=== PATIENT | female | born 1950 | race American Indian/Alaskan Native ===

== ENCOUNTER 2018-02-06 15:44 | Emergency (ER) | payer MEDICARE ==
[2018-02-06 16:03] VITALS: BP 174/56
[2018-02-06 16:20] LABS: Basophils # (Auto) 0.1 K/mm3 (0.0-0.1); Eosinophils # (Auto) 0.1 K/mm3 (0.0-0.4); Eosinophils % (Auto) 1.5 % (0.0-4.3); Hematocrit 38.1 % (30.3-42.9); Lymphocytes # (Auto) 2.1 K/mm3 (1.2-5.4); Mean Corpuscular HGB Conc 34 % (30-34); Mean Corpuscular Hemoglobin 35 pg (28-32); Mean Corpuscular Volume 102 fl (79-97); Monocytes # (Auto) 0.4 K/mm3 (0.0-0.8); Monocytes % (Auto) 6.6 % (0.0-7.3); Platelet Count 253 K/mm3 (140-440); Red Blood Count 3.74 M/mm3 (3.65-5.03); Red Cell Distribution Width 13.3 % (13.2-15.2)
[2018-02-06 16:38] LABS: Alanine Aminotransferase 16 units/L (7-56); Albumin 4.4 g/dL (3.9-5); BUN/Creatinine Ratio 20; Blood Urea Nitrogen 14 mg/dL (7-17); Calcium 9.7 mg/dL (8.4-10.2); Creatine Kinase MB 2.4 ng/mL (0.0-4.0); Hemolysis Index 15
== END 2018-02-06 17:48 | disposition left against medical advice (07) ==
LOC: ED 15:44
DX: R07.9 Chest pain, unspecified (principal); Z53.21 Procedure and treatment not carried out due to patient leaving prior to being seen by health care provider
CPT/HCPCS: 36415; 80053; 82550; 82553; 84484; 85025; 93005; 93010

== ENCOUNTER 2021-07-05 23:35 | Observation (INO) | payer OTHER, MEDICARE ==
[2021-07-05] MEDS ORDERED: SODIUM CHLORIDE 0.9% 1000 ML 1,000 ML IV ONE (23:42)
[2021-07-05] MEDS ORDERED: ONDANSETRON 4 MG/2 ML INJ IV ONE (23:42)
--- NOTE | 2021-07-05 23:47 | Emergency Department Report ---
ED Dizziness HPI - General Chief Complaint: Dizziness Stated Complaint: DIZZINESS Time Seen by Provider: 07/05/21 23:40 Source: patient, EMS Mode of arrival: Stretcher Limitations: No Limitations - History of Present Illness Initial Comments: Patient is a 71-year-old female who presents emergency room with complaints of dizziness, lightheadedness and nausea. Patient states it started approximately 3 hours ago. Patient states the symptoms are worsening. Patient states she has not vomited until she arrived here at the hospital. Patient vomited while waiting on EMS stretcher to be placed in a room. Patient denies diarrhea. Patient denies fever and chills. Patient denies fall. Patient denies head injury. Patient denies chest pain or shortness of breath. Patient denies recent travel. Patient denies recent international travel. Patient denies exposure to the novel coronavirus. Patient denies sick contacts. Patient denies fever and chills. Patient denies cough. Patient denies diarrhea. Patient denies coming in contact with anybody with symptoms of the novel coronavirus. Complaint: dizziness, lightheadedness -: Sudden, hour(s) Timing: sudden onset Description: lightheadedness History of Same: No History of Trauma: No Severity: severe Improves With: rest Worsens With: movement, position, exertion Associated Symptoms: denies: ataxia, chest pain, confusion, cough, diaphoresis, fever/chills, loss of appetite, malaise, rash, seizure, shortness of breath, syncope, weakness - Related Data Allergies Allergy/AdvReac Type Severity Reaction Status Date / Time No Known Allergies Allergy Unverified 02/06/18 16:02 ED Review of Systems ROS: Stated complaint: DIZZINESS Other details as noted in HPI Constitutional: denies: chills, fever Eyes: denies: eye pain, eye discharge, vision change ENT: denies: ear pain, throat pain Respiratory: denies: cough, shortness of breath, wheezing Cardiovascular: denies: chest pain, palpitations Endocrine: no symptoms reported Gastrointestinal: denies: abdominal pain, nausea, diarrhea Genitourinary: denies: urgency, dysuria, discharge Musculoskeletal: denies: back pain, joint swelling, arthralgia Skin: denies: rash, lesions Neurological: denies: headache, weakness, paresthesias Psychiatric: denies: anxiety, depression Hematological/Lymphatic: denies: easy bleeding, easy bruising ED Past Medical Hx - Past Medical History Previous Medical History?: Yes Hx Hypertension: Yes Hx Psychiatric Treatment: Yes (anxiety) - Surgical History Past Surgical History?: No - Family History Family history: no significant - Social History Smoking Status: Never Smoker Substance Use Type: None ED Physical Exam - General Limitations: No Limitations General appearance: alert, in no apparent distress - Head Head exam: Present: atraumatic, normocephalic - Eye Eye exam: Present: normal appearance - ENT ENT exam: Present: mucous membranes moist - Neck Neck exam: Present: normal inspection - Respiratory Respiratory exam: Present: normal lung sounds bilaterally. Absent: respiratory distress, wheezes, rales - Cardiovascular Cardiovascular Exam: Present: regular rate, normal rhythm. Absent: systolic murmur, diastolic murmur, rubs, gallop - GI/Abdominal GI/Abdominal exam: Present: soft, normal bowel sounds. Absent: distended, tenderness, guarding - Extremities Exam Extremities exam: Present: normal inspection - Back Exam Back exam: Present: normal inspection - Neurological Exam Neurological exam: Present: alert, oriented X3, CN II-XII intact, abnormal gait - Psychiatric Psychiatric exam: Present: normal affect, normal mood - Skin Skin exam: Present: warm, dry, intact, normal color. Absent: rash ED Course Vital Signs 07/06/21 07/06/21 07/06/21 00:24 00:30 00:46 Pulse Rate 57 L 58 L Respiratory 16 18 18 Rate Blood Pressure 151/57 O2 Sat by Pulse 100 98 Oximetry - Reevaluation(s) Reevaluation #1: Patient states she still nauseated. Patient unable to tolerate p.o. intake. Patient will be given another dose of Zofran. 07/06/21 02:00 Reevaluation #2: I discussed all results with patient. I discussed plan of care with patient. Patient agrees with plan of care and admission. Patient to be admitted to the hospitalist service. 07/06/21 02:13 - Consultations Consultation #1: I discussed the case with [facility] physician, Dr. Cai. Dr. Cai wants the patient to be admitted here. 07/06/21 02:10 Consultation #2: Hospitalist consulted for admission. Hospitalist to admit patient. 07/06/21 02:13 ED Medical Decision Making - Lab Data Result diagrams: 07/06/21 00:53 07/06/21 00:53 - EKG Data -: EKG Interpreted by Me EKG shows normal: sinus rhythm, axis, intervals, QRS complexes, ST-T waves Rate: normal - Radiology Data Radiology results: report reviewed, image reviewed interpreted by me: Chest x-ray: No pneumonia, no pneumothorax, no foreign body, no osseous findings, no acute findings CT HEAD WITHOUT CONTRAST INDICATION / CLINICAL INFORMATION: Pt complains of Lightheadedness / Dizziness. TECHNIQUE: All CT scans at this location are performed using CT dose reduction for ALARA by means of automated exposure control. COMPARISON: None available. FINDINGS: No acute intracranial hemorrhage. Ventricles are normal in size without midline shift or mass effect. No extra-axial fluid collection is seen. The sinuses are clear. Orbits appear normal. ADDITIONAL FINDINGS: None. IMPRESSION: 1. No acute intracranial abnormality. CHEST 1 VIEW 07/06/2021 12:43 AM INDICATION / CLINICAL INFORMATION: Lightheadedness/Dizziness. COMPARISON: None available. FINDINGS: SUPPORT DEVICES: None. HEART / MEDIASTINUM: No significant abnormality. LUNGS / PLEURA: There is mild increased interstitial prominence within the lungs. No pneumothorax - Medical Decision Making Patient is a 71-year-old female that presents emergency room with complaints of nausea, vomiting, dizziness, lightheadedness. Patient also complained of difficulty walking. Patient had labs done which were essentially unremarkable. Patient had chest x-ray done which was negative for acute findings. Patient had a head CT which was negative for acute findings. I personally reviewed the chest x-ray. Patient had an EKG done which showed normal sinus rhythm. I personally reviewed the EKG. Patient given fluids and antiemetics. Patient continued to have nausea vomiting. Patient failed p.o. challenge. Patient has [facility] insurance, I discussed the case with the [facility] on-call physician. [facility] physician wants patient admitted here. Patient admitted to the hospital service for further evaluation and treatment. Critical care time documented due to the multiple reassessments, prolonged time at the bedside, interpretation of diagnostics and labs. - Differential Diagnosis Dizziness, dehydration, nausea, vomiting, gastroenteritis, Critical Care Time: Yes Critical care time in (mins) excluding proc time.: 35 Critical care attestation.: If time is entered above; I have spent that time in minutes in the direct care of this critically ill patient, excluding procedure time. Critical Care Time: 35 minutes ED Disposition Clinical Impression: Dizziness, Lightheadedness, Gastroenteritis Nausea & vomiting Qualifiers: Vomiting type: unspecified Vomiting Intractability: intractable Qualified Code(s): R11.2 - Nausea with vomiting, unspecified Disposition: ADMITTED INPATIENT Is pt being admited?: Yes Does the pt Need Aspirin: No Condition: Critical Time of Disposition: 02:16
--- NOTE | 2021-07-06 00:59 | Cat Scan Report ---
CT HEAD WITHOUT CONTRAST INDICATION / CLINICAL INFORMATION: Pt complains of Lightheadedness / Dizziness. TECHNIQUE: All CT scans at this location are performed using CT dose reduction for ALARA by means of automated e xposure control. COMPARISON: None available. FINDINGS: No acute intracranial hemorrhage. Ventricles are normal in size without midline shift or mass effect. No extra-axial fluid collection is seen. The sinuses are clear. Orbits appear normal. ADDITIONAL FINDINGS: None. IMPRESSION: 1. No acute intracranial abnormality. Signer Name: Miles Mcknight MD Signed: 07/06/2021 12:55 AM Workstation Name: [id number]
[2021-07-06 01:12] LABS: Basophils % (Auto) 0.3 % (0.0-1.8); Eosinophils % (Auto) 0.4 % (0.0-4.3); Hematocrit 34.6 % (30.3-42.9); Hemoglobin 11.7 gm/dl (10.1-14.3); Lymphocytes # (Auto) 1.9 K/mm3 (1.2-5.4); Lymphocytes % (Auto) 17.5 % (13.4-35.0); Mean Corpuscular HGB Conc 34 % (30-34); Mean Corpuscular Volume 105 fl (79-97); Monocytes # (Auto) 0.4 K/mm3 (0.0-0.8); Platelet Count 210 K/mm3 (140-440); Red Blood Count 3.29 M/mm3 (3.65-5.03); Red Cell Distribution Width 13.2 % (13.2-15.2)
[2021-07-06 01:35] LABS: Alanine Aminotransferase 18 units/L (7-56); Albumin 4.1 g/dL (3.9-5); BUN/Creatinine Ratio 15; Blood Urea Nitrogen 12 mg/dL (7-17); Calcium 8.5 mg/dL (8.4-10.2); Hemolysis Index 3
[2021-07-06 01:37] LABS: Creatine Kinase MB 1.9 ng/mL (0.0-4.0)
--- NOTE | 2021-07-06 01:52 | XRay Report ---
CHEST 1 VIEW 07/06/2021 12:43 AM INDICATION / CLINICAL INFORMATION: Lightheadedness/Dizziness. COMPARISON: None available. FINDINGS: SUPPORT DEVICES: None. HEART / MEDIASTINUM: No significant abnormality. LUNGS / PLEURA: There is mild increased interstitial prominence within the lungs. No pneumothorax Signer Name: Miles Mcknight MD Signed: 07/06/2021 1:47 AM Workstation Name: [id number]
[2021-07-06] MEDS ORDERED: ONDANSETRON 4 MG/2 ML INJ IV ONE (01:59)
--- NOTE | 2021-07-06 02:36 | History and Physical Report ---
History of Present Illness Date of examination: 07/06/21 Date of admission: 07/06/21 Chief complaint: Nausea and vomiting Abdominal Pain History of present illness: This is a 71 year old Patient-seen in ED at bedside. patint is alert and oriented times 3. She reports severe abdominal pain-pain level is 9/10. She said her symptoms started yesterday after eating phil green with chicken prepared by her . She also presents to emergency room with complaints of dizziness, lightheadedness and nausea. Patient states the symptoms are worsening. Patient states she has not vomited until she arrived here at the hospital. Per ED record, Patient vomited while waiting on EMS stretcher to be placed in a room. Patient denies fever and chills. Patient denies tobacco use, alcohol use and illicit drug use. Patient denies chest pain and shortness of breath. She said she completed 2 doses of covid 19 vaccination. Chest x-ray and CT of the head done-no acute finding. Past History Past Medical History: hypertension, hyperlipidemia Past Surgical History: Other (laminectomy) Social history: , lives with family, full code. denies: smoking, alcohol abuse, prescription drug abuse, IV drug use Family history: no significant family history Medications and Allergies Allergies Allergy/AdvReac Type Severity Reaction Status Date / Time No Known Allergies Allergy Verified 07/06/21 02:54 Review of Systems Constitutional: anorexia, fatigue Ears, nose, mouth and throat: no epistaxis, no bleeding gums Cardiovascular: lightheadedness, high blood pressure, no chest pain, no leg edema Gastrointestinal: abdominal pain, nausea, vomiting, diarrhea Genitourinary Female: no dyspareunia, no pelvic pain Rectal: no hemorrhoids Integumentary: no rash, no pruritis, no redness Psychiatric: no anxiety Hematologic/Lymphatic: no easy bruising, no easy bleeding Allergic/Immunologic: no urticaria Exam - Constitutional Vitals: Temp Pulse Resp BP Pulse Ox 58 L 18 151/57 98 07/06/21 00:30 07/06/21 00:46 07/06/21 00:30 07/06/21 00:46 General appearance: Present: mild distress, well-nourished - EENT Eyes: Present: PERRL ENT: hearing intact, clear oral mucosa - Neck Neck: Present: supple, normal ROM - Respiratory Respiratory effort: normal Respiratory: bilateral: CTA - Cardiovascular Heart Sounds: Present: S1 & S2. Absent: rub, click - Extremities Extremities: pulses symmetrical, No edema Peripheral Pulses: within normal limits - Abdominal General gastrointestinal: Present: soft, tender, non-distended, normal bowel sounds Female genitourinary: Present: normal - Integumentary Integumentary: Present: clear, warm, dry - Musculoskeletal Musculoskeletal: gait normal, strength equal bilaterally - Psychiatric Psychiatric: appropriate mood/affect, intact judgment & insight, cooperative - Neurologic Neurologic: CNII-XII intact, moves all extremities - Allied Health Allied health notes reviewed: nursing HEART Score - HEART Score Troponin: Troponin T < 0.010 ng/mL (0.00-0.029) 07/06/21 00:53 Results - Labs CBC & Chem 7: 07/06/21 00:53 07/06/21 00:53 Labs: Abnormal lab results 07/06/21 07/06/21 Range/Units 00:53 00:53 RBC 3.29 L (3.65-5.03) M/mm3 MCV 105 H (79-97) fl MCH 36 H (28-32) pg Seg Neutrophils % 77.8 H (40.0-70.0) % Seg Neutrophils # 8.4 H (1.8-7.7) K/mm3 Sodium 136 L (137-145) mmol/L Glucose 237 H (65-100) mg/dL Assessment and Plan - Patient Problems (1) Gastroenteritis Current Visit: Yes Status: Acute Plan to address problem: Empiric abx with zosyn pt reports that her symptoms started after eating phil green with chicken yesterday NPO and IV hydration CT of abdomen/pelvis-result pending (2) Nausea & vomiting Current Visit: Yes Status: Acute Qualifiers: Vomiting type: unspecified Vomiting Intractability: intractable Qualified Code(s): R11.2 - Nausea with vomiting, unspecified Plan to address problem: Anti-emetic PRN (3) Essential (primary) hypertension Current Visit: Yes Status: Acute Plan to address problem: monitor blood pressure Resume home anti-hypertensive Chest x-ray -no acute finding (4) Hyperlipemia Current Visit: Yes Status: Acute Plan to address problem: resume home stratin (5) Lightheadedness Current Visit: Yes Status: Acute Plan to address problem: CT of the head -negative (6) DVT prophylaxis Current Visit: Yes Status: Acute Plan to address problem: clarisse couch
[2021-07-06] MEDS ORDERED: METOCLOPRAMIDE 10 MG/2 ML INJ IV PRN (02:39)
[2021-07-06] MEDS ORDERED: oxyCODONE /ACETAMINOPHEN 5-325MG TAB PO PRN (02:39)
[2021-07-06] MEDS ORDERED: ACETAMINOPHEN 325 MG TAB PO PRN (02:39)
[2021-07-06] MEDS ORDERED: MORPHINE 2 MG/1 ML INJ IV PRN (02:39)
[2021-07-06] MEDS ORDERED: MORPHINE 4 MG/1 ML INJ IV PRN (02:39)
[2021-07-06] MEDS ORDERED: MAGNESIUM HYDROXIDE (MOM) ORAL LIQD UDC PO PRN (02:39)
[2021-07-06] MEDS ORDERED: ONDANSETRON 4 MG/2 ML INJ IV PRN (02:39)
[2021-07-06] MEDS ORDERED: NALOXONE 0.4 MG/1 ML INJ IV PRN (02:39)
[2021-07-06] MEDS ORDERED: ALUM-MAG HYDROXIDE-SIMETHICONE 200-200-20MG/5ML ORAL LIQD 30 ML PO PRN (02:39)
[2021-07-06] MEDS ORDERED: traZODone 50 MG TAB PO PRN (02:43)
[2021-07-06] MEDS ORDERED: hydrALAZINE 20 MG/1 ML INJ IV PRN (02:44)
[2021-07-06] MEDS ORDERED: SODIUM CHLORIDE 0.9% 1000 ML 1,000 ML IV SCH (02:45)
[2021-07-06] MEDS: PIPERACIL/TAZOBACTA 4.5/NS 100 4.5 GM/100 ML VIAL IV SCH ×2 (04:03→11:49)
[2021-07-06] MEDS: FAMOTIDINE 20 MG/2 ML INJ IV SCH ×3 (04:03→21:15)
[2021-07-06] MEDS: INSULIN LISPRO 100 UNIT/ML SUB-Q SCH ×4 (08:56→21:23)
--- NOTE | 2021-07-06 11:00 | Cat Scan Report ---
CT ABDOMEN AND PELVIS WITHOUT CONTRAST INDICATION / CLINICAL INFORMATION: ABDOMINAL PAIN. TECHNIQUE: Axial CT images were obtained through the abdomen and pelvis without IV contrast. All CT scans at this location are performed using CT dose reduction for ALARA by means of automated exposure control. COMPARISON: None available. FINDINGS: LOWER CHEST: No acute abnormality LIVER: No significant abnormality. GALLBLADDER: No significant abnormality. BILE DUCTS: No significant abnormality. PANCREAS: No significant abnormality. SPLEEN: No significant abnormality. ADRENALS: No significant abnormality. RIGHT KIDNEY / URETER: There is a 1 cm cyst in the lower pole. No acute abnormality is seen. No renal or ureteral calculi are seen. LEFT KIDNEY / URETER: No significant abnormality. STOMACH / SMALL BOWEL: No significant abnormality. COLON: No significant abnormality. APPENDIX: There is a small appendicolith in the appendix. The appendix measures up to 8 mm in diamete r. There are some minimal stranding in the periappendiceal fat. There is some air within the appendix . PERITONEUM: No free fluid. No free air. No fluid collection. LYMPH NODES: No significant adenopathy. AORTA / ARTERIES: No significant abnormality. IVC / VEINS: No significant abnormality. URINARY BLADDER: No significant abnormality. REPRODUCTIVE ORGANS: No significant abnormality. ADDITIONAL FINDINGS: None. SKELETAL SYSTEM: No significant abnormality. IMPRESSION: 1. The appendix is slightly enlarged and there is some minimal stranding in the periappendiceal fat. There is a tiny appendicolith. The appearance is suspicious for mild appendicitis but the abnormaliti es are subtle and therefore not definitive.. Signer Name: Juan Argueta MD Signed: 07/06/2021 10:56 AM Workstation Name: [email or web address]
[2021-07-06] MEDS: amLODIPine 10 MG TAB PO SCH (11:48)
[2021-07-06] MEDS: ENOXAPARIN 40 MG/0.4 ML INJ SUB-Q SCH (11:49)
--- NOTE | 2021-07-06 12:30 | Progress Note ---
Assessment and Plan Assessment and plan: #Abdominal pain -WBC within normal limits, afebrile -CT abdomen/pelvis showed an enlarged appendix with mild stranding -Surgery consulted, assistance appreciated -We will treat with Levaquin x7 days #Nausea and vomiting -Resolved, as needed Zofran History Interval history: No acute events overnight. Patient still reporting lightheadedness upon standing. Denies current abdominal pain, nausea, vomiting. Hospitalist Physical - Physical exam Narrative exam: GENERAL: Well-developed well-nourished. Lying in the bed no acute distress CHEST/LUNGS: CTAB on room air HEART/CARDIOVASCULAR: RRR. No murmur, rubs or gallops appreciated. ABDOMEN: +BS. NT/ND. NEURO: No focal motor deficit. Follows all commands. EXTREMITIES: No cyanosis, cubbing or edema. PSYCH: Cooperative. - Constitutional Vitals: Temp Pulse Resp BP Pulse Ox 98.6 F 63 18 153/68 100 07/06/21 11:25 07/06/21 11:57 07/06/21 11:25 07/06/21 11:25 07/06/21 11:25 General appearance: Present: mild distress, well-nourished - Allied Health Allied health notes reviewed: nursing, social work HEART Score - HEART Score Troponin: Troponin T < 0.010 ng/mL (0.00-0.029) 07/06/21 00:53 Results - Labs CBC & Chem 7: 07/06/21 00:53 07/06/21 00:53 Labs: Laboratory Last Values WBC 10.8 K/mm3 (4.5-11.0) 07/06/21 00:53 RBC 3.29 M/mm3 (3.65-5.03) L 07/06/21 00:53 Hgb 11.7 gm/dl (10.1-14.3) 07/06/21 00:53 Hct 34.6 % (30.3-42.9) 07/06/21 00:53 MCV 105 fl (79-97) H 07/06/21 00:53 MCH 36 pg (28-32) H 07/06/21 00:53 MCHC 34 % (30-34) 07/06/21 00:53 RDW 13.2 % (13.2-15.2) 07/06/21 00:53 Plt Count 210 K/mm3 (140-440) 07/06/21 00:53 Lymph % (Auto) 17.5 % (13.4-35.0) 07/06/21 00:53 Cottle % (Auto) 4.0 % (0.0-7.3) 07/06/21 00:53 Eos % (Auto) 0.4 % (0.0-4.3) 07/06/21 00:53 Baso % (Auto) 0.3 % (0.0-1.8) 07/06/21 00:53 Lymph # (Auto) 1.9 K/mm3 (1.2-5.4) 07/06/21 00:53 Cottle # (Auto) 0.4 K/mm3 (0.0-0.8) 07/06/21 00:53 Eos # (Auto) 0.0 K/mm3 (0.0-0.4) 07/06/21 00:53 Baso # (Auto) 0.0 K/mm3 (0.0-0.1) 07/06/21 00:53 Seg Neutrophils % 77.8 % (40.0-70.0) H 07/06/21 00:53 Seg Neutrophils # 8.4 K/mm3 (1.8-7.7) H 07/06/21 00:53 Sodium 136 mmol/L (137-145) L 07/06/21 00:53 Potassium 3.8 mmol/L (3.6-5.0) 07/06/21 00:53 Chloride 100.6 mmol/L (98-107) 07/06/21 00:53 Carbon Dioxide 30 mmol/L (22-30) 07/06/21 00:53 Anion Gap 9 mmol/L 07/06/21 00:53 BUN 12 mg/dL (7-17) 07/06/21 00:53 Creatinine 0.8 mg/dL (0.6-1.2) 07/06/21 00:53 Estimated GFR > 60 ml/min 07/06/21 00:53 BUN/Creatinine Ratio 15 % 07/06/21 00:53 Glucose 237 mg/dL (65-100) H 07/06/21 00:53 Hemoglobin A1c 6.2 % (4-6) H 07/06/21 05:10 Calcium 8.5 mg/dL (8.4-10.2) 07/06/21 00:53 Phosphorus 2.70 mg/dL (2.5-4.5) 07/06/21 05:10 Magnesium 1.80 mg/dL (1.7-2.3) 07/06/21 05:10 Total Bilirubin 0.40 mg/dL (0.1-1.2) 07/06/21 00:53 AST 21 units/L (5-40) 07/06/21 00:53 ALT 18 units/L (7-56) 07/06/21 00:53 Alkaline Phosphatase 60 units/L (35-129) 07/06/21 00:53 Total Creatine Kinase 126 units/L (30-135) 07/06/21 00:53 CK-MB (CK-2) 1.9 ng/mL (0.0-4.0) 07/06/21 00:53 CK-MB (CK-2) Rel Index 1.5 (0-4) 07/06/21 00:53 Troponin T < 0.010 ng/mL (0.00-0.029) 07/06/21 00:53 Total Protein 7.0 g/dL (6.3-8.2) 07/06/21 00:53 Albumin 4.1 g/dL (3.9-5) 07/06/21 00:53 Albumin/Globulin Ratio 1.4 % 07/06/21 00:53 Cantor/IV: Voiding Method External Female Catheter Active Medications - Current Medications Current Medications: Generic Name Dose Route Start Last Admin Trade Name Freq PRN Reason Stop Dose Admin Acetaminophen 650 mg 07/06/21 02:39 Acetaminophen 325 Mg Tab PO Q4H PRN Pain MILD(1-3)/Fever >100.5/CRAIG Al Hydrox/Mg Hydrox/Simethicone 30 ml 07/06/21 02:39 Alum-Mag Hydroxide-Simethicone [id number]/5ml Oral Liqd 30 Ml PO Q4H PRN Indigestion Amlodipine Besylate 10 mg 07/06/21 10:00 07/06/21 11:48 Amlodipine 10 Mg Tab PO 10 mg QDAY JULIA Administration Atorvastatin Calcium 20 mg 07/06/21 22:00 Atorvastatin 20 Mg Tab PO QHS JULIA Enoxaparin Sodium 40 mg 07/06/21 10:00 07/06/21 11:49 Enoxaparin 40 Mg/0.4 Ml Inj SUB-Q 40 mg DAILY JULIA Administration Protocol Famotidine 20 mg 07/06/21 03:00 07/06/21 11:49 Famotidine 20 Mg/2 Ml Inj IV 20 mg BID JULIA Administration Hydralazine HCl 5 mg 07/06/21 02:44 Hydralazine 20 Mg/1 Ml Inj IV Q4HR PRN Hypertension Sodium Chloride 1,000 mls @ 100 mls/hr 07/06/21 02:45 Nacl 0.9% 1000 Ml IV DIRECT JULIA Piperacillin Sod/Tazobactam Sod 4.5 gm in 100 mls @ 200 mls/hr 07/06/21 03:00 07/06/21 11:49 Zosyn/Ns 4.5gm/100ml IV 200 mls/hr Q8H JULIA Administration Protocol Insulin Human Lispro 0 unit 07/06/21 07:30 07/06/21 11:49 Insulin Lispro 100 Unit/Ml SUB-Q Not Given ACHS [facility] Protocol Magnesium Hydroxide 30 ml 07/06/21 02:39 Magnesium Hydroxide (Mom) Oral Liqd Udc PO Q4H PRN Constipation Metoclopramide HCl 10 mg 07/06/21 02:39 Metoclopramide 10 Mg/2 Ml Inj IV Q6H PRN Nausea And Vomiting Morphine Sulfate 2 mg 07/06/21 02:39 Morphine 2 Mg/1 Ml Inj IV Q4H PRN Pain, Moderate (4-6) Naloxone HCl 0.1 mg 07/06/21 02:39 Naloxone 0.4 Mg/1 Ml Inj IV Q2MIN PRN Res Rate </= 8 or 02 SAT < 92% Ondansetron HCl 4 mg 07/06/21 02:39 Ondansetron 4 Mg/2 Ml Inj IV Q8H PRN Nausea And Vomiting Oxycodone/Acetaminophen 1 tab 07/06/21 02:39 Oxycodone /Acetaminophen 5-325mg Tab PO Q6H PRN Pain, Moderate (4-6) Sodium Chloride 10 ml 07/06/21 02:39 Sodium Chloride 0.9% 10 Ml Flush Syringe IV PRN PRN LINE FLUSH Trazodone HCl 50 mg 07/06/21 02:43 Trazodone 50 Mg Tab PO QHS PRN Insomnia
--- NOTE | 2021-07-06 15:25 | Consultation ---
History of Present Illness Consult date: 07/06/21 Reason for consult: abdominal pain - History of present illness History of present illness: 71 yo female with 1 day h/o right sided abdominal pain, nausea and vomiting. Pt now denies abdominal pain, nausea and vomiting. Past History Past Medical History: diabetes, hypertension, hyperlipidemia Past Surgical History: Other (laminectomy) Social history: , lives with family, full code. denies: smoking, alcohol abuse, prescription drug abuse, IV drug use Family history: no significant family history Medications and Allergies Allergies Allergy/AdvReac Type Severity Reaction Status Date / Time No Known Allergies Allergy Verified 07/06/21 02:54 Active Meds: Active Medications Acetaminophen (Acetaminophen 325 Mg Tab) 650 mg PO Q4H PRN PRN Reason: Pain MILD(1-3)/Fever >100.5/CRAIG Al Hydrox/Mg Hydrox/Simethicone (Alum-Mag Hydroxide-Simethicone [id number]/5ml Oral Liqd 30 Ml) 30 ml PO Q4H PRN PRN Reason: Indigestion Amlodipine Besylate (Amlodipine 10 Mg Tab) 10 mg PO QDAY JULIA Last Admin: 07/06/21 11:48 Dose: 10 mg Documented by: Atorvastatin Calcium (Atorvastatin 20 Mg Tab) 20 mg PO QHS JULIA Enoxaparin Sodium (Enoxaparin 40 Mg/0.4 Ml Inj) 40 mg SUB-Q DAILY JULIA; Protocol Last Admin: 07/06/21 11:49 Dose: 40 mg Documented by: Famotidine (Famotidine 20 Mg/2 Ml Inj) 20 mg IV BID JULIA Last Admin: 07/06/21 11:49 Dose: 20 mg Documented by: Hydralazine HCl (Hydralazine 20 Mg/1 Ml Inj) 5 mg IV Q4HR PRN PRN Reason: Hypertension Sodium Chloride (Nacl 0.9% 1000 Ml) 1,000 mls @ 100 mls/hr IV DIRECT JULIA Piperacillin Sod/Tazobactam Sod (Zosyn/Ns 4.5gm/100ml) 4.5 gm in 100 mls @ 200 mls/hr IV Q8H JULIA; Protocol Last Admin: 07/06/21 11:49 Dose: 200 mls/hr Documented by: Insulin Human Lispro (Insulin Lispro 100 Unit/Ml) 0 unit SUB-Q ACHS JULIA; Protocol Last Admin: 07/06/21 11:49 Dose: Not Given Documented by: Magnesium Hydroxide (Magnesium Hydroxide (Mom) Oral Liqd Udc) 30 ml PO Q4H PRN PRN Reason: Constipation Metoclopramide HCl (Metoclopramide 10 Mg/2 Ml Inj) 10 mg IV Q6H PRN PRN Reason: Nausea And Vomiting Morphine Sulfate (Morphine 2 Mg/1 Ml Inj) 2 mg IV Q4H PRN PRN Reason: Pain, Moderate (4-6) Naloxone HCl (Naloxone 0.4 Mg/1 Ml Inj) 0.1 mg IV Q2MIN PRN PRN Reason: Res Rate </= 8 or 02 SAT < 92% Ondansetron HCl (Ondansetron 4 Mg/2 Ml Inj) 4 mg IV Q8H PRN PRN Reason: Nausea And Vomiting Oxycodone/Acetaminophen (Oxycodone /Acetaminophen 5-325mg Tab) 1 tab PO Q6H PRN PRN Reason: Pain, Moderate (4-6) Sodium Chloride (Sodium Chloride 0.9% 10 Ml Flush Syringe) 10 ml IV PRN PRN PRN Reason: LINE FLUSH Trazodone HCl (Trazodone 50 Mg Tab) 50 mg PO QHS PRN PRN Reason: Insomnia Review of Systems All systems: negative (none) Exam Vital Signs Pulse Resp 57 L 16 07/06/21 00:24 07/06/21 00:24 - General physical appearance Positive: well developed, well nourished, no distress - Eyes Positive: PERRL, normal occular movement - ENT Positive: normal pinna, normal nares, normal mucosa, no hearing loss, no congestion - Neck Positive: no masses, no bruits, trachea midline, no venous distension - Respiratory Positive: normal expansion, normal respiratory effort, clear to auscultation - Cardiovascular Rhythm: regular Heart Sounds: Present: S1 & S2. Absent: rub, click - Extremities Extremities: no ischemia, pulses symmetrical, No edema - Breasts Breasts: normal, no mass, no skin changes - Abdomen Abdomen: Present: soft, bowel sounds normal. Absent: tender, distended Hernia: none - Genitourinary Male Genitourinary: normal Female Genitourinary: normal - Integumentary no rash, no growths, no abnormal pigmentation - Neurologic Neurologic: alert and oriented to time, place and person, motor strength and sensation are grossly intact - Musculoskeletal normal gait, normal posture - Psychiatric Psychiatric: appropriate mood/affect, intact judgment & insight Results - Labs 07/06/21 00:53 07/06/21 00:53 Abnormal lab results 07/06/21 07/06/21 07/06/21 Range/Units 00:53 00:53 05:10 RBC 3.29 L (3.65-5.03) M/mm3 MCV 105 H (79-97) fl MCH 36 H (28-32) pg Seg Neutrophils % 77.8 H (40.0-70.0) % Seg Neutrophils # 8.4 H (1.8-7.7) K/mm3 Sodium 136 L (137-145) mmol/L Glucose 237 H (65-100) mg/dL Hemoglobin A1c 6.2 H (4-6) % Diabetes panel 07/06/21 07/06/21 Range/Units 00:53 05:10 Sodium 136 L (137-145) mmol/L Potassium 3.8 (3.6-5.0) mmol/L Chloride 100.6 (98-107) mmol/L Carbon Dioxide 30 (22-30) mmol/L BUN 12 (7-17) mg/dL Creatinine 0.8 (0.6-1.2) mg/dL Glucose 237 H (65-100) mg/dL Hemoglobin A1c 6.2 H (4-6) % Calcium 8.5 (8.4-10.2) mg/dL AST 21 (5-40) units/L ALT 18 (7-56) units/L Alkaline Phosphatase 60 (35-129) units/L Total Protein 7.0 (6.3-8.2) g/dL Albumin 4.1 (3.9-5) g/dL Calcium panel 07/06/21 07/06/21 Range/Units 00:53 05:10 Calcium 8.5 (8.4-10.2) mg/dL Phosphorus 2.70 (2.5-4.5) mg/dL Albumin 4.1 (3.9-5) g/dL Pituitary panel 07/06/21 Range/Units 00:53 Sodium 136 L (137-145) mmol/L Potassium 3.8 (3.6-5.0) mmol/L Chloride 100.6 (98-107) mmol/L Carbon Dioxide 30 (22-30) mmol/L BUN 12 (7-17) mg/dL Creatinine 0.8 (0.6-1.2) mg/dL Glucose 237 H (65-100) mg/dL Calcium 8.5 (8.4-10.2) mg/dL Adrenal panel 07/06/21 Range/Units 00:53 Sodium 136 L (137-145) mmol/L Potassium 3.8 (3.6-5.0) mmol/L Chloride 100.6 (98-107) mmol/L Carbon Dioxide 30 (22-30) mmol/L BUN 12 (7-17) mg/dL Creatinine 0.8 (0.6-1.2) mg/dL Glucose 237 H (65-100) mg/dL Calcium 8.5 (8.4-10.2) mg/dL Total Bilirubin 0.40 (0.1-1.2) mg/dL AST 21 (5-40) units/L ALT 18 (7-56) units/L Alkaline Phosphatase 60 (35-129) units/L Total Protein 7.0 (6.3-8.2) g/dL Albumin 4.1 (3.9-5) g/dL - Imaging CT scan - abdomen: report reviewed CT scan - pelvis: report reviewed Assessment and Plan - Patient Problems (1) Right lower quadrant pain Current Visit: Yes Status: Acute Plan to address problem: 1) CLD 2) Doubt appendicitis but would give her a week long course of Levaquin just in case. 3) CBC in the am
[2021-07-07 05:40] LABS: Basophils % (Auto) 0.4 % (0.0-1.8); Eosinophils % (Auto) 0.3 % (0.0-4.3); Hematocrit 35.7 % (30.3-42.9); Hemoglobin 12.3 gm/dl (10.1-14.3); Lymphocytes # (Auto) 1.5 K/mm3 (1.2-5.4); Lymphocytes % (Auto) 24.7 % (13.4-35.0); Mean Corpuscular HGB Conc 34 % (30-34); Mean Corpuscular Volume 104 fl (79-97); Monocytes # (Auto) 0.4 K/mm3 (0.0-0.8); Monocytes % (Auto) 6.3 % (0.0-7.3); Platelet Count 236 K/mm3 (140-440); Red Blood Count 3.44 M/mm3 (3.65-5.03); Red Cell Distribution Width 13.1 % (13.2-15.2)
[2021-07-07 05:41] LABS: Alanine Aminotransferase 16 units/L (7-56); Albumin 4.2 g/dL (3.9-5); BUN/Creatinine Ratio 13; Blood Urea Nitrogen 10 mg/dL (7-17); Calcium 9.5 mg/dL (8.4-10.2); Hemolysis Index 4
[2021-07-07] MEDS: INSULIN LISPRO 100 UNIT/ML SUB-Q SCH ×2 (08:26→12:35)
[2021-07-07] MEDS: ENOXAPARIN 40 MG/0.4 ML INJ SUB-Q SCH (10:11)
[2021-07-07] MEDS: amLODIPine 10 MG TAB PO SCH (10:12)
[2021-07-07] MEDS: FAMOTIDINE 20 MG/2 ML INJ IV SCH (10:12)
--- NOTE | 2021-07-07 11:41 | Progress Note ---
Assessment and Plan - Patient Problems (1) Right lower quadrant pain Current Visit: Yes Status: Acute Plan to address problem: 1) FLD 2) Pt can be discharged from my perspective. 3) She should f/u with her PCP. 4) I would discharge her on a week long course of Levaquin, 500 mg po qday. Subjective Date of service: 07/07/21 Patient Reports: Positive: no new complaints, feels better, pain is less, tolerating liquids well Objective Vital Signs - 12hr 07/07/21 07/07/21 07/07/21 03:46 04:00 07:00 Temperature 98.2 F 98.1 F Pulse Rate 56 L 54 L 59 L Respiratory 16 18 Rate Blood Pressure 126/57 Blood Pressure 140/74 [Right] O2 Sat by Pulse 99 100 Oximetry 07/07/21 10:12 Temperature Pulse Rate 62 Respiratory Rate Blood Pressure 140/74 Blood Pressure [Right] O2 Sat by Pulse Oximetry - Abdomen bowel sounds normal (NT, ND) - Labs 07/07/21 04:48 07/07/21 04:48 Diabetes panel 07/07/21 Range/Units 04:48 Sodium 137 (137-145) mmol/L Potassium 3.8 (3.6-5.0) mmol/L Chloride 100.9 (98-107) mmol/L Carbon Dioxide 26 (22-30) mmol/L BUN 10 (7-17) mg/dL Creatinine 0.8 (0.6-1.2) mg/dL Glucose 122 H (65-100) mg/dL Calcium 9.5 (8.4-10.2) mg/dL AST 19 (5-40) units/L ALT 16 (7-56) units/L Alkaline Phosphatase 61 (35-129) units/L Total Protein 7.3 (6.3-8.2) g/dL Albumin 4.2 (3.9-5) g/dL Calcium panel 07/07/21 Range/Units 04:48 Calcium 9.5 (8.4-10.2) mg/dL Albumin 4.2 (3.9-5) g/dL Pituitary panel 07/07/21 Range/Units 04:48 Sodium 137 (137-145) mmol/L Potassium 3.8 (3.6-5.0) mmol/L Chloride 100.9 (98-107) mmol/L Carbon Dioxide 26 (22-30) mmol/L BUN 10 (7-17) mg/dL Creatinine 0.8 (0.6-1.2) mg/dL Glucose 122 H (65-100) mg/dL Calcium 9.5 (8.4-10.2) mg/dL Adrenal panel 07/07/21 Range/Units 04:48 Sodium 137 (137-145) mmol/L Potassium 3.8 (3.6-5.0) mmol/L Chloride 100.9 (98-107) mmol/L Carbon Dioxide 26 (22-30) mmol/L BUN 10 (7-17) mg/dL Creatinine 0.8 (0.6-1.2) mg/dL Glucose 122 H (65-100) mg/dL Calcium 9.5 (8.4-10.2) mg/dL Total Bilirubin 0.80 (0.1-1.2) mg/dL AST 19 (5-40) units/L ALT 16 (7-56) units/L Alkaline Phosphatase 61 (35-129) units/L Total Protein 7.3 (6.3-8.2) g/dL Albumin 4.2 (3.9-5) g/dL
--- NOTE | 2021-07-07 12:39 | Discharge Summary ---
Providers - Providers Date of Admission: 07/06/21 02:16 Date of discharge: 07/07/21 Attending physician: SANTIAGO HAND MD 07/06/21 12:28 Consult to Physician [CONS] Routine Comment: Consulting Provider: BONNIE NIELSEN Physician Instructions: Reason For Exam: Appendicitis Hospitalization Condition: Critical Exam - Constitutional Vitals: Temp Pulse Resp BP Pulse Ox 98.1 F 62 18 140/74 100 07/07/21 07:00 07/07/21 10:12 07/07/21 07:00 07/07/21 10:12 07/07/21 07:00 Plan Follow up with: JUAN CARLOS VELAZCO [Other] - 3-5 Days Prescriptions: AtorvaSTATin [Lipitor] 20 mg PO QHS 30 Days #30 tablet amLODIPine 10 mg PO QDAY 30 Days #30 tablet levoFLOXacin [Levaquin TAB] 500 mg PO QDAY 6 Days #6 tablet
[2021-07-07 12:54] VITALS: BP 136/96
--- NOTE | 2021-07-07 13:26 | Electrocardiograph Report ---
[facility] Test Date: 2021-07-06 Test Time: 00:32:14 Pat Name: BERNADINE JURADO Department: Room: A483 1 Gender: F Instrument Technologist: JAM : 1950 Requested By: ISREAL RITCHIE III Order Number: [id number] Reading MD: Kulwinder Briones Measurements Intervals [place] Rate: 61 P: 35 AL: 162 QRS: 15 QRSD: 108 T: 51 QT: 460 QTc: 465 Interpretive Statements Sinus rhythm Poor R wave progression possible old anteroseptal infarct No previous ECG available for comparison Electronically Signed On 07-07-2021 13:25:44 EDT by Kulwinder Briones
== END 2021-07-07 14:40 | disposition home or self-care (01) ==
LOC: ED 23:35 → 4A 07-06 02:16
PROVIDERS: ADMIT Internal Medicine Geriatric Medicine; ATTEND Student in an Organized Health Care Education/Training Program
DX: K52.9 Noninfective gastroenteritis and colitis, unspecified (principal); I10 Essential (primary) hypertension; E11.9 Type 2 diabetes mellitus without complications; E78.5 Hyperlipidemia, unspecified; F41.9 Anxiety disorder, unspecified; R42 Dizziness and giddiness; Z79.899 Other long term (current) drug therapy; Z98.890 Other specified postprocedural states; Z79.4 Long term (current) use of insulin
CPT/HCPCS: 36415; 70450; 71045; 74176; 80053; 82550; 82553; 82962; 83036; 83735; 84100; 84484; 85025; 93005; 96361; 96365; 96366; 96367; 96372; 96375; 96376; 99291; A9270; G0378; J1650; J1956; J2405; J2543; J7030